=== PATIENT | male | born 1940 | race Caucasian/White ===

== ENCOUNTER 2017-10-27 17:44 | Inpatient (IN) | payer BC ==
[~2017-10-27] VITALS: Ht 175.3 cm; Wt 83.9 kg
[2017-10-27] MEDS ORDERED: PLAVIX 75 MG TA75 M1 PO (18:09)
[2017-10-27] MEDS ORDERED: GLYBURIDE 2.52.5 MG PO (18:11)
[2017-10-27] MEDS ORDERED: PRAVACHOL40 MG PO (18:13)
[2017-10-27] MEDS ORDERED: VITAMINC500 PO (18:14)
[2017-10-27] MEDS ORDERED: VITAMIN D2000 UNIT PO (18:18)
[2017-10-27] MEDS ORDERED: PROSCAR 5MG TABL5 MG PO (18:21)
[2017-10-27] MEDS ORDERED: COZAAR 50 MG TA50 M1 PO (18:23)
[2017-10-27] MEDS ORDERED: METFORMIN HCL500 MG PO (18:24)
[2017-10-27 20:26] VITALS: BP 135/77
--- NOTE | 2017-10-28 01:52 | NUR ---
ADMITTED @ 1916-10/27-WED-A 77 YEAR OLD [place] PER W/C FROM [facility].FAMILY BROUGHT PATIENT TO REHAB. STAYED UNTIL 2029.ASSISTED W/ 2 PERSONS FROM W/C TO RECLINER @ 1929.RIGHT HAND DOMINANT.CVA W/ FLACCID RUE. WEAK RIGHT LE.RIGHT UE ELEVATED ON A PILLOW WHILE IN RECLINER & WHILE IN BED. ASSIST OF 2 PERSONS TO BED @ 2209.URINAL W/IN REACH.HOB UP.BED ALARM PUT ON @ 2214.CALLS TO USE URINAL STANDING.NURSE PUTS,HOLDS,REMOVES & EMPTIES URINAL @ NIGHT.TURNS SELF @ NIGHT.
[2017-10-28 05:06] LABS: HEMATOCRIT 40.3 % (42.0-52.0); HEMOGLOBIN 13.9 gm/dL (14.0-18.0); MCH 32.1 pg (26.0-34.0); MCHC 34.6 g/dL (28.0-37.0); MCV 92.7 fL (80.0-100.0); MPV 8.9 fl. (7.2-11.1); RBC 4.34 mil/uL (4.50-6.00); RDW-CV 13.2 % (10.5-14.5)
[2017-10-28 05:08] LABS: CALCIUM 9.1 mg/dL (8.5-10.1); CREATININE 1.2 mg/dL (0.6-1.3); POTASSIUM 4.2 mmol/L (3.5-5.1)
--- NOTE | 2017-10-28 05:40 | NUR ---
SLEEPING SINCE -10/28-.USED URINAL W/ ASSIST X3-STANDING.STANDING BALANCE STILL UNSTEADY.TOOK ALL POTATO CHIPS,JELLO,TURKEY SANDWICH & NAOMI CRACKERS SNACKS.PENELOPE @ [facility].
[2017-10-28 07:39] VITALS: BP 123/69
[2017-10-28 08:04] VITALS: BP 123/69
--- NOTE | 2017-10-28 11:38 | NUR ---
AM ASSESSMENT AND VITAL SIGNS COMPLETED DOCUMENTED. PT HAS BEEN PLEASANT AND COOPERATIVE, STATES HE IS VERY EXCITED TO BE HERE AND IS ANXIOUS TO DO MUCH THERAPY POSSIBLE. PT, ST AND OT EVALS WILL BE COMPLETED TODAY, PLAN OF CARE TO BE DETERMINED. PT'S WAS HERE THIS AM AND HAS BEEN ORIENTED TO UNIT AND REHAB SCHEDULE. FALL PRECAUTIONS AND HOURLY ROUNDING OBSERVED.
--- NOTE | 2017-10-28 12:48 | NUR ---
Nutrition: Pt admit s/p lt CVA, no current H&P. BUN 26, fasting BG WNL. Accuchecks 72-127. Statin, metformin and other meds reviewed. Intake 100%. Appears at low nutrition risk. Rec add CHO controlled diet if BG elevated.
--- NOTE | 2017-10-28 16:04 | NUR ---
SW met with pt and pt Lissette to complete initial assessment, introduce self, and SW role. Pt alert and oriented. Pt anticipates to be able to dc home with his . Currently, their dtr and son in law and family are living with them until the dtr and son in law's home is built. Pt and pt are grateful for this as they do not worry about their home while they are in the hospital. Pt previously independent with ADLs and mobility. Pt has no history of HH or SNF and has no DME. Pt was discouraged and expressed being upset about not agreeing to go to the hospital earlier as his had suggested. SW provided emotional support. SW to continue to follow to assist with safe dc planning.
--- NOTE | 2017-10-28 18:36 | NUR ---
PT HAS PARTICIPATED WITH ALL THERAPIES TODAY AND IS VERY MOTIVATED. PT's FAMILY CAME TO VISIT THIS EVENING AND THEY ARE VERY ENCOURAGING AND SUPPORTIVE TO HIM. NO ACUTE DISTRESS, WILL CONTINUE WITH PLAN OF CARE.
[2017-10-28 21:11] VITALS: BP 119/70
--- NOTE | 2017-10-29 05:04 | NUR ---
ASSUMED CARE AT 1920. PT ALERT AND ORIENTED. UP IN RECLINER. CVA WITH RIGHT HEMIPARESIS. RIGHT ARM FLACCID AND RIGHT LEG WEAK. SLIGHT SLURRING OF SPEECH. TAKES PILLS WHOLE WITHOUT ISSUES. DID REFUSED S/S INSULING AT BEDTIME. SAYS THAT HE HAD JUST EATEN SOME CANDY RIGH BEFORE BEING CHECKED. HE IS A MOD ASSIST WITH GAIT BELT AND WALKER. PT NEEDED ASSIST WITH USING URINAL. DENIED ANY PAIN. USED CALL LIGHT APPROPRIATELY. SLEPT WELL OTHERWISE. BED ALARM ON.
[2017-10-29 07:48] VITALS: BP 116/67; BP 128/41
--- NOTE | 2017-10-29 16:15 | NUR ---
ASSUMED CARE AT 0730. ALERT ORIENTED PLEASANT COOPERATIVE. HX OF CVA RT. UE FLACCID AND RLE WEAKNESS. TRANSFERS WITH 1 ASSIST G BELT WALKER STANDS TO USE URINAL WITH STAFF ASSIST. DENIES PAIN OR REQUESTS. TAKES MEDS WHOLE WITH WATER WITHOUT DIFFICULTY. FEEDS SELF WITH SET UP. PARTICIPATING IN THERAPIES THROUGHOUT THE DAY. UP IN W/C WITH RT. ARM IN ARM TROUGH. HERE OFF AND ON THROUGH THE DAY. USES CALL LIGHT APPROPRIATELY FOR ASSISTANCE.
[2017-10-29 19:02] VITALS: BP 108/70
[2017-10-29 19:57] VITALS: BP 108/70
--- NOTE | 2017-10-30 05:03 | NUR ---
ASSUMED CARES AT 1930. PT ALERT AND ORIENTED X 4. PLEASANT. CVA WTIH RIGHT HEMIPARESIS. DENIES ANY PAIN. HE IS A MOD ASSIST WITH GAIT BELT AND WALKER. MAY LEAN TOWARDS RIGHT SIED WHEN STANDING. DOES NEED ASSIST WITH LEGS INTO BED. STAFF ASSISTED WITH USING URINAL FEW TIMES DURING THE NIGHT. SLEPT OFF AND ON. CALL LIGHT IN REACH. BED ALARM ON.
[2017-10-30 07:30] VITALS: BP 96/63
--- NOTE | 2017-10-30 16:02 | NUR ---
ASSUMED CARE AT 0730, PATIENT ALERT/ORIENTED, UP WITH ASSIST OF ONE AND WALKER/GAIT BELT. NO COMPLAINTS OF PAIN/DISCOMFORT. PARTICIPATED IN ALL THERAPIES TODAY, TO DINING ROOM FOR MEALS, BED/CHAIR ALARMS IN PLACE, CALL LIGHT IN REACH, HOURLY ROUNDING COMPLETED.
--- NOTE | 2017-10-30 19:45 | NUR ---
SITTING UP IN RECLINER VISITING WITH . DENIES PAIN. WANTS TO TAKE MELATONIN LATER. DECLINED OFFER OF A SNACK.
[2017-10-30 20:07] VITALS: BP 120/67
--- NOTE | 2017-10-31 05:23 | NUR ---
TAKES MEDS WHOLE WITH WATER. REFUSED HS SS INSULIN. AMARI HELD LAST NOC DUE TO PT HAVING HAD LOOSE BM YESTERDAY. PT STATES RESTED WELL. UP X ONE EARLY AM TO THE BATHROOM TO VOID. PT THOUGHT HE WAS GOING TO HAVE A BM BUT DIDN'T. GAIT WAS MORE UNSTEADY. PT TOOK MELATONIN LAST NOC. HOURLY ROUNDING IN PROGRESS.
[2017-10-31 07:45] VITALS: BP 105/68
--- NOTE | 2017-10-31 09:34 | NUR ---
AM ASSESSMENT AND VITAL SIGNS COMPLETED DOCUMENTED. PT WAS DRESSED AND SITTING IN THE RECLINER, AMBULATED TO THE DINING ROOM WITH A WALKER AND STAND BY ASSIST FOR BREAKFAST. PT IS INDEPENDENT WITH MEALS OTHER THAN OPENING THE MILK CARTON, GOOD APPETITE. PT IS NOW BACK IN HIS ROOM, FALL PRECAUTIONS AND HOURLY ROUNDING CONTINUE.
--- NOTE | 2017-10-31 12:26 | NUR ---
AM ASSESSMENT AND VITAL SIGNS COMPLETED DOCUMENTED. PT HAS WORKED WITH OT, PT AND ST THIS AM, COOPERATIVE AND PLEASANT. COLACE HELD PER PT REQUEST, STATES HE DOESN'T WANT TO HAVE ANY MORE LOOSE STOOLS. PT HAS BEEN AMBULATING TO THE BATHROOM USING A WALKER AND MIN ASSIST FOR BALANCE. PLAN OF CARE CONTINUES, HOURLY ROUNDING AND FALL PRECAUTIONS IN PLACE.
--- NOTE | 2017-10-31 20:00 | NUR ---
SITTING UP IN RECLINER WATCHING TV. IN GOOD SPIRITS. SMILING. DENIES DISCOMFORT. DOESN'T WANT HS SS INSULIN. DECLINED OFFER A SNACK.
[2017-10-31 20:06] VITALS: BP 115/70
--- NOTE | 2017-11-01 05:04 | NUR ---
RESTED QUIETLY. VOIDED X 2 DURING THE NIGHT. STANDS TO VOID. STAFF POSITIONS HOLD AND EMPTIES URINAL. NO COMPLAINTS VOICED. HOURLY ROUNDING IN PROGRESS.
[2017-11-01 07:46] VITALS: BP 116/71
--- NOTE | 2017-11-01 17:46 | NUR ---
ASSUMED CARE AT 0730 PATIENT ALERT/ORIENTED, NO COMPLAINTS OF PAIN THIS SHIFT, UP WITH ONE AND GAIT BELT/WALKER. NO THERAPIES TODAY BUT DID WALK WITH STAFF, TO DINING ROOM FOR MEALS, HOURLY ROUNDING COMPLETED, BED/CHAIR ALARMS IN PLACE, CALL LIGHT IN REACH. DR LY ORDERED ESTIMULATION TO RIGHT ARM, ORDER PLACED. CONTINUE WITH CURRENT PLAN OF CARE
--- NOTE | 2017-11-01 20:00 | NUR ---
JUST LEFT. SITTING UP IN W/C WATCHING FOOTBALL ON TV. STATES READY FOR BED. TOOK 3 ATTEMPTS FOR PT TO GET FROM SITTING TO STANDING. NO LIFTING WAS INVOLVED. USES WALKER WITH ADAPTIVE DEVICE FOR RIGHT HAND. STOOD TO VOID. STAFF POSITIONS HOLD AND EMPTIES URINAL. WANTS MELATONIN LATER. REFUSED HS INSULIN. RIGHT ARM ELEVATED ON A PILLOW.
[2017-11-01 20:16] VITALS: BP 117/72
--- NOTE | 2017-11-02 05:18 | NUR ---
UP X ONE DURING THE NIGHT TO THE TOILET. NO COMPLAINTS VOICED. HOURLY ROUNDING IN PROGRESS.
[2017-11-02 07:00] VITALS: BP 122/70
--- NOTE | 2017-11-02 14:45 | NUR ---
ASSUMED CARE AT 0730. ALERT ORIENTED PLEASANT COOPERATIVE. HX OF CVA RT. SIDE WEAKNESS RT. ARM FLACCID RLE WEAKNESS. TRANSFERS WITH MIN ASSIST G BELT WALKER. LIKES TO STAND TO VOID IN URINAL NURSE HOLDS AND EMPTIES. DENIES PAIN OR REQUESTS. FEEDS SELF WITH SET UP AND TAKES MEDS WITHOUT DIFFICULTY. USES CALL LIGHT APPROPRIATELY FOR ASSISTANCE. BED CHAIR ALARM FOR PT. SAFETY. PARTICIPATING IN THERAPIES THROUGHOUT THE DAY. HERE VISITING.
[2017-11-02 20:55] VITALS: BP 119/52; BP 119/70
--- NOTE | 2017-11-03 01:29 | NUR ---
ASSUMED CARE @ 1939-11/02-.SITS IN RECLINER W/ VISITING @ THIS TIME.RUE ELEVATED ON A PILLOW WHILE IN RECLINER.RUE-FLACCID.RIGHT LE-WEAK.CHAIR ALARM ALREADY ON WHILE IN RECLINER.ASSISTED TO BED BY LEAF BINNER W/ HOB & RUE-BOTH UP.BED ALARM PUT ON @ 2014.PRN MELATONIN 10 MG ORAL GIVEN @ 2047-PER PT'S REQUEST. TURNS SELF @ NIGHT.CALLS FOR ASSIST TO USE URINAL STANDING.ON HOURLY ROUNDS.LEAF BINNER DOING ODD HOUR ROUNDS.
--- NOTE | 2017-11-03 05:49 | NUR ---
SLEEPING SINCE 2199.REFUSED HS SNACK.USES URINAL STANDING.NURSE PUTS,HOLDS, REMOVES & EMPTIES URINAL @ NIGHT.USED URINAL X3.BRP W/ ASSIST X1.
[2017-11-03 08:12] VITALS: BP 118/70
[2017-11-03 14:00] VITALS: BP 129/68
--- NOTE | 2017-11-03 14:30 | NUR ---
SW met with pt and pt to review team conference summary. Plan for pt to remain on rehab unit and continue therapies and for team to reassess pt length of stay during team conference on Friday 11/10. SW and pt/family acknowledged pt would need RW and AFO; AFO to be assessed and ordered during hospital stay and SW to order RW near pt dc for pt to take home with him. SW relayed team discussed pt progress and pt min assist with transfers and walking 150 ft with FWW, supervision with wc 150 ft, min assist with toileting, bathing, and min to mod asssit with LB dressing, supervision/SBA with grooming and UB dressing, mod I with cognition. SW mentioned team expressed barriers to be pt impulsivity, decreased balance, right foot drop, weakness and needing extra time to process. Team to encourage pt not to schneider in his tasks. Pt and pt family in agreement with plan. SW to continue to follow to assist with safe dc planning.
--- NOTE | 2017-11-03 15:56 | NUR ---
ORDERS FOR ESTIM TO RIGHT ARM HAVE BEEN DEFERRED TO O.T. ORDERS WRITTEN IN CHART. MIRACLE VENTURA, MPT
--- NOTE | 2017-11-03 16:04 | NUR ---
ORDERS RECEIEVED REGARDING E-STIM FOR R ARM. ORDERS DEFERRED TO OYayoT. RN SUBMITTED ORDERS FOR O.T. MIRACLE VENTURA,MPT
--- NOTE | 2017-11-03 17:24 | NUR ---
ASSUMED CARE AT 0730. ALERT ORIENTED PLEASANT COOPERATIVE. HX OF CVA RT. SIDE WEAKNESS. TRANSFERS WITH 1 ASSIST G BELT WALKER RT. UE FLACCID RT. LOWER EXTREMITY WEAK. DENIES PAIN OR REQUESTS. PT. TAKES MEDS WITH WATER HAD A COUGHING SPELL WITH MEDS HE TOOK SEVERAL AT ONCE. RESOLVED ISSUE QUICKLY INSTRUCTED TO SLOW DOWN WITH EATING AND MEDS TAKE TIME. PARTICIPATING IN THERAPIES THROUGHOUT THE DAY. PT. WAS BEING AMBULATED FROM W/C TO DOORWAY OF ROOM USING WALKER G BELT WITH WEAKNESS RT. SIDE LOST BALANCE AND WAS LOWERED TO FLOOR BY STUD DRIVER. VSWNL. DENIES PAIN CONTINUED TO PARTICIPE IN THERAPIES THROUGHOUT THE DAY. HERE ON AND OFF TODAY. USES CALL LIGHT APPROPRIATELY FOR ASSISTANCE. BED CHAIR ALARM FOR PT. SAFETY.
[2017-11-03 19:30] VITALS: BP 122/74
--- NOTE | 2017-11-03 19:50 | NUR ---
JUST LEFT. PT WAS UNABLE TO RISE FROM RECLINER AND STAND WITH ASSIST OF ONE. AFTER 3 ATTEMPTS ASSISTED PT WITH ASSIST OF 2, GAITBELT, WALKER. PT MORE WEAK AND UNSTEADY THAN WHEN CARED FOR PT TWO NIGHTS AGO. ONE HELPER PLACED AND HELD THE URINAL WHILE OTHER HELPER KEPT PT STEADY. PT WAS ABLE TO LIFT HIS LEGS INTO THE BED. CALL LIGHT WITHIN REACH. RIGHT ARM ELEVATED ON A PILLOW.
--- NOTE | 2017-11-04 05:16 | NUR ---
UP X TWO DURING THE NIGHT TO VOID. NO COMPLAINTS VOICED. HOURLY ROUNDING IN PROGRESS.
[2017-11-04 07:45] VITALS: BP 127/65
--- NOTE | 2017-11-04 09:30 | NUR ---
FAX SENT TO [facility] FOR RIGHT AFO
[2017-11-04 10:50] LABS: HEMATOCRIT 41.5 % (42.0-52.0); HEMOGLOBIN 14.3 gm/dL (14.0-18.0); MCHC 34.6 g/dL (28.0-37.0); MCV 92.4 fL (80.0-100.0); MPV 8.7 fl. (7.2-11.1); RBC 4.49 mil/uL (4.50-6.00); RDW-CV 13.4 % (10.5-14.5); WBC 6.7 thou/uL (4.0-11.0)
[2017-11-04 10:59] LABS: ALBUMIN 3.8 g/dL (3.4-5.0); CALCIUM 8.9 mg/dL (8.5-10.1); CREATININE 1.2 mg/dL (0.6-1.3); POTASSIUM 3.9 mmol/L (3.5-5.1); TOTAL BILIRUBIN 0.7 mg/dL (<0.1-1.0); TOTAL PROTEIN 7.4 g/dL (6.4-8.2)
--- NOTE | 2017-11-04 18:14 | NUR ---
ASSUMED CARE AT 0730 PATIENT ALERT/ORIENTED, UP WITH MOD ASSIST OF ONE WALKER AND GAIT BELT, NO COMPLAINTS OF PAIN, TO DINING ROOM FOR MEALS, PARTICIPATED IN ALL THERAPIES TODAY, BED/CHAIR ALARMS IN PLACE, CALL LIGHT IN REACH, HOURLY ROUNDING COMPLETED. AFO ORDERD WILL BE HERE WEDNESDAY OR WED. CONTINUE WITH CURRENT PLAN OF CARE
[2017-11-04 20:04] VITALS: BP 124/77
--- NOTE | 2017-11-04 22:10 | NUR ---
ASSUMED CARE AT 1929. PATIENT S/P CVA. RT HAND MOVES BUT PLASTIC PRESS MOLDER IS WEAK. RLE WEAK. IN RECLINER UNTIL ASSISTED TO BED AROUND 2129. UP WITH ONE, GAIT BELT, WALKER. MOD LIFTING ASSIST WITH RISING, NEEDED CUEING FOR HAND PLACEMENT. VOIDS PER URINAL AT [facility], NURSE HOLDS IT AND EMPTIES. RT ARM SUPPORTED ON PILLOW. TAKES PILLS WITH WATER. STRONGLY REFUSED HS SNACK. GIVEN MELATONIN PER REQUEST AT HS. DENIES PAIN. HOURLY ROUNDS CONTINUE, CALL LITE IN REACH. BED ALARM ON.
--- NOTE | 2017-11-05 06:09 | NUR ---
SLEPT MOST OF THE NIGHT EXCEPT TO VOID. STANDS AT SIDE OF BED TO VOID WITH NURSE HOLDING URINAL. NO C/O PAIN. TURNS SELF. BED ALARM ON. CALL LITE IN REACH. HOURLY ROUNDING CONTINUES.
[2017-11-05 07:30] VITALS: BP 105/68
--- NOTE | 2017-11-05 15:44 | NUR ---
ASSUMED CARE AT 0730. ALERT ORIENTED, PLEASANT COOPERATIVE. HX OF CVA RT. SIDE WEAKNESS. TRANSFERS WITH MIN ASSIST G BELT WALKER FROM SIT TO STAND DUE TO LOWER EXTREMITY WEAKNESS. VOIDS PER URINAL WITH NURSE PLACING IT HE LIKES TO STAND TO VOID. FEEDS SELF AND TAKES MEDS WITHOUT DIFFICULTY CRUSHED IN APPLESAUCE. THIN LIQUIDS.
--- NOTE | 2017-11-05 18:55 | NUR ---
AND PTS. FAMILY ATE SAMOAN IN DR FOR SUPPER PROPELLS SELF IN W/C TO DR. DENIES PAIN OR REQUESTS.
[2017-11-05 20:00] VITALS: BP 123/72
--- NOTE | 2017-11-06 02:11 | NUR ---
ASSUMED CARE @ 1916-11/05-WEDNESDAY.SITS IN RECLINER.RUE ELEVATED ON A PILLOW @ THIS TIME.ROLLS BALL W/ RIGHT HAND HAND & FINGER EXERCISES.CHAIR ALARM PUT ON @ 1916.CALLS FOR ASSIST TO STAND TO VOID USING URINAL.NURSE PUTS,HOLDS, REMOVES & EMPTIES URINAL @ NIGHT.HOB UP & RUE UP WHILE IN BED.BED ALARM PUT ON @ 2049.PRN MELATONIN 10 MG ORAL GIVEN @ 2115-PER PT'S REQUEST.WANTS DOOR CLOSED @ NIGHT.ON HOURLY ROUNDS.ARBORER DOING ODD HOUR ROUNDS.TURNS SELF @ NIGHT. THIGH HIGH TEDS OFF @ 2049.
--- NOTE | 2017-11-06 05:19 | NUR ---
SLEEPING SINCE 2200.AWAKE ONLY TO VOID.USED URINAL X3.URINE ACCIDENT X1.TOOK ALL CRANBERRY JUICE & ONE PACKAGE NAOMI CRACKERS HS SNACKS.
[2017-11-06 08:00] VITALS: BP 113/72
--- NOTE | 2017-11-06 16:10 | NUR ---
ASSUMMED CARE OF PT AT 0730, PT ALERT AND ORIENTED, FORGETFUL,PT UP WITH 1, GB WALKER, SLIGHT SWELLING IN RIGHT LE, RODRI HOSE TO RIGHT LEG, PT DENIES PAIN, TAKING FOOD AND FLUIDS WELL, PARTICIPATED IN ALL THERAPIES, HOURLY ROUNDING COMPLETED, ASSESSMENT COMPLETE, WILL COTNINUE TO MONITER.
[2017-11-06 20:29] VITALS: BP 117/79
--- NOTE | 2017-11-07 02:07 | NUR ---
ASSUMED CARE @ 1911-11/06-SAT.SITS IN RECLINER W/ CHAIR ALARM ALREADY ON @ THIS TIME.,DAUGHTER & HER OTHER SISTERS VISITING ALSO.RUE ELEVATED ON A PILLOW WHILE SITTING.HAS BALL RIGHT HAND FOR HAND/FINGER EXERCISES.EDEMA-+2 PITTING FEET.WEARS ONLY THIGH RODRI HOSE RIGHT LE & OFF @ 2114.ASSISTED TO BED BY [employer] MACHINE OPERATOR. PRN MELATONIN 10 MG ORAL GIVEN @ 2116-PER PT'S REQUEST.HOB & RUE UP WHILE IN BED.BED ALARM PUT ON @ 2124.WANTS DOOR CLOSED @ NIGHT.TURNS SELF @ NIGHT.USES URINAL @ NIGHT BUT STANDS TO USE URINAL W/ ASSIST.NURSE PUTS,HOLDS,REMOVES & EMPTIES URINAL @ NIGHT.ON HOURLY ROUNDS.CONCR[employer]ODUCTS MACHINE OPERATOR DOING ODD HOUR ROUNDS.
--- NOTE | 2017-11-07 05:06 | NUR ---
SLEEPING SINCE 2199.USED URINAL W/ASSIST X2.RUE-FLACCID.WEAK-RIGHT LE.TOOK ALL CRANBERRY JUICE & ONE PACKAGE NAOMI CRACKERS HS SNACKS.
[2017-11-07 08:22] VITALS: BP 95/67
--- NOTE | 2017-11-07 15:46 | NUR ---
ASSUMED CARE AT 0730. ALERT ORIENTED PLEASANT COOPERATIVE. HX OF CVA RT. SIDE WEAKNESS. TRANSFERS WITH 1 ASSIST AND STANDS TO VOID PER URINAL WITH NURSE PLACING AND HOLDING URINAL. USING WALKER TO AMBULATE X 1 IN [place] WITH TIRE ADJUSTER. PROPELLS SELF IN W/C TO DR FEEDS SELF AND TAKES MEDS WITH WATER WITHOUT DIFFICULTY. APPETITE GOOD HERE VISITING THIS AFTERNOON. USES CALL LIGHT APPROPRIATELY FOR ASSIST BED CHAIR ALARM FOR PT. SAFETY. RT. ARM FLACCID RLE WEAKNESS.
[2017-11-07 21:37] VITALS: BP 139/71
--- NOTE | 2017-11-08 01:07 | NUR ---
ASSUMED CARE @ 1919-11/07-WEDNESDAY.SITS IN RECLINER WATCHING TV.CHAIR ALARM ALREADY ON @ THIS TIME.AT 1934-AMBULATING IN HALLWAY W/MAINTENANCE DATA ANALYST W/ GB & WALKER. HOB UP & RUE ELEVATED W/ A PILLOW @ 1949.RIGHT THIGH HIGH RODRI HOSE OFF @ 1949.BED ALARM PUT ON @ 1949.WANTS DOOR CLOSED & ALL LIGHTS OFF @ NIGHT. PATIENT PREFERS NEW ORDER FOR SLEEPING MED THAN PRN MELATONIN.PRN RESTORIL 7.5 MG ORAL GIVEN @ 2001-PER PT'S REQUEST.EDEMA-+2 PITTING RIGHT ANKLE & RIGHT FOOT.BP @ 0822-95/67.BP @ 2037-139/71.BUT BRADYCARDIC W/ RI-50 @ 2036. RI-76/MIN-REGULAR WHEN CHECKED @ 9-11/08-WEDNESDAY.TURNS SELF @ NIGHT.ON HOURLY ROUNDS.MAINTENANCE DATA ANALYST DOING ODD HOUR ROUNDS.
--- NOTE | 2017-11-08 05:28 | NUR ---
SLEEPING SINCE 2200.AWAKE @ INTERVALS TO VOID.ASSIST TO STAND TO USE URINAL X 4.NURSE PUTS,HOLDS,REMOVES & EMPTIES URINAL @ NIGHT.FLACCID-RUE.WEAK-RIGHT LE.REFUSED HS SNACK.
[2017-11-08 07:30] VITALS: BP 117/70
--- NOTE | 2017-11-08 18:08 | NUR ---
ASSUMED CARE AT 0730. ALERT ORIENTED PLEASANT COOPERATIVE. HX OF CVA RT. SIDE WEAKNESS. TRANSFERS WITH SBA G BELT WALKER AND STANDS WITH WALKER TO VOID. PARTICIPATING IN THERAPIES TODAY. USING CALL LIGHT APPROPRIATELY FOR ASSIST BED CHAIR ALARM FOR PT. SAFETY. TAKES MEDS WITHOUT DIFFICULTY. FEEDS SELF APPETTITE GOOD. PROPELLS W/C IN [place] WITH THERAPIES AND TO DR FOR MEALS. DENIES PAIN OR REQUESTS.
[2017-11-08 19:47] VITALS: BP 121/70
--- NOTE | 2017-11-08 21:57 | NUR ---
ASSUMED CARE AT 1930. S/P CVA WITH RT SIDED WEAKNESS. PATIENT RESTING IN RECLINER AT BEGINNING OF SHIFT, WENT TO BED AROUND 2029. UP WITH ONE, GAIT BELT, WALKER. ABLE TO DO CLOTHING ADJUSTMENTS TO CHANGE INTO PAJAMAS. TAKES PILLS WITH WATER. TEDS REMOVED. TOOK TEMAZAPAM AT HS. SEE DEC. VOIDS STANDING AT SIDE OF BED. HOURLY ROUNDS CONTINUE. BED ALARM ON. CALL LITE IN REACH.
--- NOTE | 2017-11-09 05:14 | NUR ---
SLEPT MOST OF THE NIGHT EXCEPT TO VOID. UP WITH ONE, GAIT BELT, WALKER, STANDS TO VOID. NURSE PLACES HOLDS AND EMPTIES URINAL. NO C/O PAIN. HOURLY ROUNDING CONTINUES. CALL LITE IN REACH. BED ALARM ON.
[2017-11-09 07:37] VITALS: BP 124/65
--- NOTE | 2017-11-09 18:22 | NUR ---
PT ALERT AND ORIENTATED AND ABLE TO VOICE NEEDS. PT CALLS FOR ASSIST TO AMBULATE TO BATHROOM AND VOIDS WELL AND REPORTS HAVING BM TODAY. MPT HAS NEW AFO TO RT.LOWER LEG AND REPORTS IT FEELS GOOD AND HE CAN WALKE BETTER. PT DENIES PAIN DURING DAY. PT HAS PARTICIPATED WITH THERAPIES AND CONTINUES TO PROGRESS TOWARDS GOALS. HOURLY ROUNDING CONTINUES.
[2017-11-09 19:49] VITALS: BP 97/65
--- NOTE | 2017-11-09 20:40 | NUR ---
AMBULATED TO THE BATHROOM WITH SBA, GAITBELT, WALKER. PT THOUGHT HE WAS GOING TO HAVE A BM BUT JUST PASSED FLATUS. DOES OWN RYAN CARE AND CLOTHING ADJUSTMENTS. DENIES DISCOMFORT. GAVE PRN RESTORIL PER PT'S REQUEST. PT TOOK MED WHOLE WITH WATER. RIGHT ARM ELEVATED ON A PILLOW. TURNS SELF IN BED. DECLINED OFFER OF A SNACK.
--- NOTE | 2017-11-10 04:58 | NUR ---
UP X TWO DURING THE NIGHT TO STAND AT BEDSIDE AND VOID. PT STATES RESTED GOOD IN BETWEEN VOIDS. NO COMPLAINTS VOICED. HOURLY ROUNDING IN PROGRESS.
[2017-11-10 07:37] VITALS: BP 113/65
--- NOTE | 2017-11-10 14:00 | NUR ---
SW met with pt and pt family to review team conference summary. Plan for team to reassess pt length of stay during team conference next Friday 11/17. Pt and pt family okay with plan and pt is hopeful to hear a dc date after next team conference so that he will have a day to reach for and look forward to being ready to return home at that time. SW to follow to arrange HH services and order any needed DME as pt did not have any DME prior to admission to the hospital. No other concerns or questions from pt or pt at this time.
--- NOTE | 2017-11-10 18:51 | NUR ---
ASSUMED CARE AT 0730 PATIENT ALERT/ORIENTED, NO COMPLAINTS OF PAIN/DISCOMFORT, UP WITH ASSIST OF ONE AND WALKER/GAIT BELT, USES AFO IN RIGHT FOOT. PARTICIPATED IN ALL THERAPIES TODAY, TO DINING ROOM FOR MEALS. BED/CHAIR ALARMS IN PLACE, CALL LIGHT IN REACH.
[2017-11-10 20:00] VITALS: BP 126/71
--- NOTE | 2017-11-11 00:21 | NUR ---
ASSUMED CARE AT 1930. PATIENT S/P CVA WITH RT SIDED WEAKNESS. UP WITH ONE, GAIT BELT, WALKER, STAND PIVOT. VOIDS PER URINAL STANDING, NURSE PLACES, HOLDS AND EMPTIES URINAL. TAKES PILLS ONE AT A TIME. NEW MED OF BACLOFEN, STARTED AT 5 MG, SEE MAR. DENIES PAIN. HOURLY ROUNDS CONTINUE. BED ALARM ON. CALL LITE IN REACH.
--- NOTE | 2017-11-11 06:13 | NUR ---
SLEPT MOST OF THE NIGHT EXCEPT TO VOID. NO C/O PAIN. HOURLY ROUNDS CONTINUE, BED ALARM ON. CALL LITE IN REACH.
[2017-11-11 09:19] VITALS: BP 121/69
--- NOTE | 2017-11-11 15:42 | NUR ---
ASSUMED CARE AT 0730. PATIENT ALERT/ORIENTED, UP WITH ASSIST OF ONE WALKER/GAIT BELT, NO COMPLAINTS OF PAIN THIS SHIFT, PARTICIPATED IN ALL THERAPIES, TO DINING ROOM FOR MEALS, HOURLY ROUNDING COMPLETED, BED/CHAIR ALARMS IN PLACE, CALL LIGHT IN REACH. CONTINUE WITH CURRENT PLAN OF CARE
[2017-11-11 20:03] VITALS: BP 119/71
--- NOTE | 2017-11-12 05:12 | NUR ---
ASSUMED CARES AT 1915. PT ALERT AND ORIENTED. VISITED FOR SHORT TIME. CVA WITH RIGHT HEMIPARESIS. RIGHT ARM FLACCID. RIGHT LEG WEAK. HE IS A MIN ASSIST WITH GAIT BELT AND WALKER. STAFF ASSISTS WITH URINAL PLACEMENT AND EMPTYING. RIGHT LEG AFO WHEN UP. DENIES ANY PAIN. RESTORIL GIVEN PER PT REQUEST. UP FEW TIMES DURING THE NIGHT. SLEPT WELL OTHERWISE. CALL LIGHT IN REACH AND BED ALARM ON.
[2017-11-12 07:30] VITALS: BP 113/63
--- NOTE | 2017-11-12 18:29 | NUR ---
ASSUMED CARE AT 0730. ALERT ORIENTED PLEASANT COOPERATIVE. HX OF CVA WITH RT. SIDE WEAKNESS. WEARING RAFO FOR WEAKNESS RT. LOWER EXTREMITY. TRANSFERS AND WALKS WITH G BELT WALKER TO BR AND WITH THERAPIES. DENIES PAIN OR CONCERNS. TAKES MEDS WITHOUT DIFFICULTY. USES CALL LIGHT APPROPRIATELY. FOR ASSIST. BED CHAIR ALARM FOR PT. SAFETY. HERE VISITING THROUGHOUT THE DAY, HAD WINSTEADS FOR SUPPER MEAL.
[2017-11-12 20:10] VITALS: BP 119/65
--- NOTE | 2017-11-13 05:49 | NUR ---
ASSUMED CARES AT 1920. PT ALERT AND ORIENTED. PLEASANT. SLIGHT SLURRING OF SPEECH. CVA WITH RIGHT HEMIPARESIS. TAKES PILLS WHOLE WITHOUT ISSUES. TEMAZEPAM GIVEN FOR SLEEP. UP WITH GAIT BELT AND WALKER. NEEDS ASSIST WITH URINAL PLACEMENT AND EMPTYING. SLEPT WELL MOST OF THE NIGHT. USED CALL LIGHT APPROPRIATELY.
[2017-11-13 08:03] VITALS: BP 116/64
--- NOTE | 2017-11-13 15:34 | NUR ---
ASSUMED CARE AT 0730 PATIENT ALERT/ORIENTED, NO COMPLAINTS OF PAIN THIS SHIFT, UP WITH ASSIST OF ONE WITH WALKER AND GAIT BELT, PARTICIPATED IN ALL THERAPIES TODAY, TO DINING ROOM FOR MEALS, HOURLY ROUNDING COMPLETED, CALL LIGHT IN REACH, BED/CHAIR ALARMS IN PLACE. CONTINUE WITH CURRENT PLAN OF CARE
[2017-11-13 20:04] VITALS: BP 109/65
--- NOTE | 2017-11-14 05:12 | NUR ---
ASSUMED PT CARE AT 1920. PT ALERT AND ORIENTED X4, POLITE AND COOPERATIVE WITH CARES. CVA WITH RIGHT HEMIPARESIS. TAKES PILLS WHOLE WITHOUT DIFFICULTY. TEMAZEPAM GIVEN FOR SLEEP. UP WITH GAIT BELT AND WALKER. STAFF ASSISTS WITH URINAL PLACEMENT AND EMPTYING. PT SLEPT WELL OVERNIGHT. PT USES CALL LIGHT APPROPRIATELY. CALL LIGHT AND FREQUENTLY USED ITEMS WITHIN REACH. HOURLY ROUNDING IN PROGRESS, WILL CONTINUE TO MONITOR.
[2017-11-14 08:02] VITALS: BP 108/67
--- NOTE | 2017-11-14 15:40 | NUR ---
ASSUMED CARE AT 0730 PATIENT ALERT/ORIENTED, UP WITH ASSIST OF ONE AND WALKER/GAIT BELT, NO COMPLAINTS OF PAIN THIS SHIFT, TO DINING ROOM FOR MEALS, HOURLY ROUNDING COMPLETED, CALL LIGHT IN REACH, BED/CHAIR ALARMS IN PLACE. CONTINUE WITH CURRENT PLAN OF CARE
[2017-11-14 20:06] VITALS: BP 145/80
--- NOTE | 2017-11-15 04:57 | NUR ---
ASSUMED PT CARE AT 1920. PT ALERT AND ORIENTED X4, POLITE AND COOPERATIVE WITH CARES. CVA WITH RIGHT HEMIPARESIS. DENIES PAIN. TAKES PILLS WHOLE WITH WAER WITHOUT DIFFICULTY. TEMAZEPAM GIVEN FOR SLEEP. UP WITH ASSIST OF ONE, GAIT BELT AND WALKER. STAFF ASSISTS WITH URINAL PLACEMENT AND EMPTYING. PT SLEPT WELL OVERNIGHT, USES CALL LIGHT APPROPRIATELY. CALL LIGHT AND FREQUENTLY USED ITEMS WITHIN REACH. BED ALARM ON FOR SAFETY. HOURLY ROUNDING IN PROGRESS, WILL CONTINUE TO MONITOR.
--- NOTE | 2017-11-15 18:55 | NUR ---
ASSUMED CARE AT 0730. ALERT ORIENTED PLEASANT COOPERATIVE. HX OF CVA RT. SIDE WEAKNESS. WEARS R AFO FOR RLE WEAKNESS. RODRI HOSE ON RT. LEG PER DR. HEAD. BP WAS LOW THIS A.M. RECHECKED AND WAS WNL. PARTICIPATED IN THERAPIES THROUGHOUT THE DAY. DENIES PAIN OR REQUESTS. TRANSFERS WITH SBA G BELT WALKER AND AMBULATES TO BR HAD BM AND VOIDED. USES CALL LIGHT APPROPRIATELY FOR ASSIST BED CHAIR ALARM FOR PT. SAFETY.
[2017-11-15 20:00] VITALS: BP 110/72
--- NOTE | 2017-11-16 05:08 | NUR ---
ASSUMED CARES AT 1920. PT ALERT AND ORIENTED. PLEASANT. UP IN RECLINER. DENIES ANY PAIN. HE IS A MIN ASSIST WITH GAIT BELT AND WALKER. RIGHT LEG AFO. RIGHT LEG TEDS REMOVED. SLEEPING PILL GIVEN PER REQUEST. TAKES PILLS WHOLE WITHOUT ISSUES. STANDS TO USE URINAL WITH RN ASSISTING WITH URINAL PLACEMENT AND EMPTYING. SLEPT MOST OF THE NIGHT. USED CALL LIGHT APPROPRIATELY. BED ALARM ON.
[2017-11-16 07:30] VITALS: BP 118/68
--- NOTE | 2017-11-16 14:43 | NUR ---
ASSUMED CARE AT 0730. ALERT ORIENTED PLEASANT COOPERATIVE. HX OF CVA RT. SIDE WEAKNESS. WEARS R AFO RLE. AMBULATES WITH CGA - SBA G BELT WALKER TO BR AND TO DR FOR MEALS. DENIES PAIN OR REQUESTS. USES CALL LIGHT APPROPRIATELY FOR ASSIST. BED CHAIR ALARM FOR PT. SAFETY. PARTICIPATING WITH THERAPIES THROUGHOUT THE DAY. DOES HYGEINE AND CLOTHING ADJUSTMENTS AFTER BM IN TOILET. VISITORS TODAY AND HERE THIS AFTERNOON. RODRI FRITZ RT. LEG AFTER SHOWER O.T.
[2017-11-16 20:00] VITALS: BP 102/65
--- NOTE | 2017-11-17 05:07 | NUR ---
ASSUMED CARES AT 1920. PT ALERT AND ORIENTED. PLEASANT. DENIES ANY PAIN. RESTORIL GIVEN FOR SLEEP. TAKES PILLS WHOLE WITHOUT ISSUES. HE IS A MIN ASSIST WITH GAIT BELT AND WALKER. RN ASSISTED WITH URINAL PLACEMENT AND EMPTYING. REMOVED RIGHT LEG TEDS. HAS RIGHT LEF AFO. SLEPT WELL. CALL LIGHT IN REACH AND BED ALARM ON.
[2017-11-17 08:05] VITALS: BP 119/74
--- NOTE | 2017-11-17 17:29 | NUR ---
SW met with pt and pt to review team conference summary. Plan for pt to dc home with and family on Wednesday with back up plan of dc Wednesday if needed. Pt and pt are in agreement and hopeful for Wednesday dc. SW explained team's recommendation for family training and pt will be available for family training at 9 am. Pt agreeable to spending the night with pt and aware of assisting with pt as needed to trial how pt will be at home. Pt to have HH services and a rolling walker arranged prior to pt dc. SW to continue to follow to assist with finalizing safe dc plan.
--- NOTE | 2017-11-17 17:43 | NUR ---
ASSUMED CARE AT 0730 PATIENT ALERT/ORIENTED NO COMPLAINTS OF PAIN, UP WITH ASSIST OF ONE AND WALKER AND GAIT BELT. PARTICIPATED IN ALL THERAPIES TODAY, CALL LIGHT IN REACH, BED/CHAIR ALARMS IN PLACE. HOURLY ROUNDING COMPLETED. TO BE DISCHARGED TO HOME FRI/SAT, TO SPEND OVERNIGHT FOR TRAINING. CONTINUE WITH CURRENT PLAN OF CARE
[2017-11-17 20:30] VITALS: BP 115/67
--- NOTE | 2017-11-18 01:51 | NUR ---
ASSUMED CARE @ 1926-11/17-WED.SITS IN RECLINER WATCHING TV.BRACE IN PLACE RIGHT LE.RIGHT THIGH HIGH RODRI HOSE OFF @ 2119 WHEN PATIENT PUT TO BED.CALLS FOR ASSIST TO STAND TO USE URINAL @ NIGHT.NURSE PUTS,HOLDS,REMOVES & EMPTIES URINAL @ NIGHT.PRN RESTORIL GIVEN @ 2135-PER PT'S REQUEST.RUE ELEVATED ON A PILLOW WHEN IN BED.TURNS SELF @ NIGHT.CVA W/ FLACCID-RUE.WEAK-RIGHT LE. ON HOURLY ROUNDS.LOGISTICS SUPPLY OFFICER DOING ODD HOUR ROUNDS.
--- NOTE | 2017-11-18 05:24 | NUR ---
SLEEPING SINCE 2200.REFUSED HS SNACK.USED URINAL W/ ASSIST X2.WARM BLANKET PLACED ON PATIENT 2X.ROOM -COLD.PLAN-TO DC WEDNESDAY-11/19.
[2017-11-18 07:24] VITALS: BP 114/69
--- NOTE | 2017-11-18 16:28 | NUR ---
ASSUMED CARE AT 0730 PATIENT ALERT/ORIENTED, NO COMPLAINTS OF PAIN THIS SHIFT UP WITH ASSIST OF ONE AND WALKER/GAIT BELT, TO DINING ROOM FOR MEALS, PARTICIPATED IN ALL THERAPIES TODAY, HOURLY ROUNDING COMPLETED, BED/CHAIR ALARMS IN PLACE. FAMILY TRAINING WITH TO STAY OVERNIGHT WITH PATIENT, TO BE D/C HOME TOMORROW.
--- NOTE | 2017-11-18 17:02 | NUR ---
NINO provided referral by fax and also called [facility] who accepted referral and orders for pt to receive HH services at [place] on Sunday 11/19. NINO faxed order for RW and discussed with Eileen Donovan who will provide RW to pt room prior to pt dc. Pt to dc home with and family at all times to assist and supervise and for [facility] HH care services to follow.
[2017-11-18 19:35] VITALS: BP 105/75
--- NOTE | 2017-11-18 19:35 | NUR ---
PT SITTING UP IN RECLINER AND WATCHING TV. DENIES DISCOMFORT. IS STAYING THE NIGHT WITH PATIENT AND SLEEPING ON A COT. IS CARING FOR THE PATIENT WITH SUPERVISION FROM RN. PT IS TO SLEEP ON A REGULAR BED IN THE TRANSITIONAL LIVING APARTMENT. DECLINED OFFER OF A SNACK.
[2017-11-19 00:51] VITALS: BP 105/75
[2017-11-19] MEDS ORDERED: CHILDREN'S ASPI81 M1 PO (01:01)
[2017-11-19] MEDS ORDERED: LIORESAL 10 MG10 MG PO (01:04)
--- NOTE | 2017-11-19 06:33 | NUR ---
UP X 4 DURING THE NIGHT TO STAND TO VOID WITH ASSISTING AND RN SUPERVISING. DIDN'T HAVE DIFFICULTY ONCE SHE FIGURED OUT HOW TO PUT THE GAITBELT ON. IS LEFT HANDED. PT CURRENTLY SITTING UP IN RECLINER. HOURLY ROUNDING IN PROGRESS.
[2017-11-19 08:32] VITALS: BP 124/75
[2017-11-19 08:47] VITALS: BP 105/75
--- NOTE | 2017-11-19 13:26 | NUR ---
ASSUMMED CARE OF PT AT 0730, PT ALERT AND ORIENTED, PT UP IN ROOM WITH SUPERVSION OF , AND STAFF, PT TAKING FOOD AND FLUIDS WELL, DENIES PAIN, PARTICIPATED IN ALL THERAPIES, TRANSFERS WITH WALKER AND GB, ORDERS OBTAINED FOR DISCHARGE, PT AND INSTRUCTED IN DISCHARGE ORDERS, FOLLOW UP APPTS, WHEN TO CALL PHYSICIAN, MEDICATIONS, FALL PRECAUTIONS, HOME HEALTH, AND PT STATE UNDERSTANDING OF INSTRUCTIONS, SCRIPT GIVEN TO PT AND CALLED INTO PHARMACY, BELONGINGS SENT WITH PT, WALKER SENT WITH PT, HOURLY ROUNDING COMPLETED, ASSESSMENT COMPLETED, DISCHARGED TO MAIN ENTRANCE PER WHEELCHAIR.
--- NOTE | 2017-11-24 14:12 | H ---
[address] [address] HISTORY AND PHYSICAL Name: BRADENINDIGO J Room: [address]#: [id number] Admission: 10/27/17 Attend Phys: Kelly Fuentes, DO Discharge: 11/19/17 Date of : 44 Report #: [id number] THIS REPORT FOR: //name// CC: Alonso Fuentes DATE OF SERVICE: 10/27/2017 HISTORY OF PRESENT ILLNESS: This is a 77-year-old male admitted to inpatient rehabilitation to facilitate safe discharge to the home setting, status post left cerebrovascular accident. He is a right hand dominant male. He had some dizziness and slurred speech with multiple falls prior to admission and CT showed no process, but MRI did show acute infarct in the left qamar. He was outside the window for TPA. 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 He has needs in physical and occupational therapy as well as speech and language pathology. He does have his grandson and his spouse at the bedside during this history and physical. He has multiple medical comorbidities requiring acute medical care on a daily basis. No significant changes since the preadmission screening. Previous level of function was independent to modified independent with activities of daily living. Current level of function is moderate to maximum assistance of 1-2 depending on therapy, activity and time of day. He does have a Luke in. He also has vtew-qx-ocaapziy cognitive deficits in comprehension, expression, social interaction, problem solving and memory. His estimated length of stay is 18-21 days with discharge disposition to the home setting where he lives in a house with everything available on one level with 2 steps to enter. PAST MEDICAL HISTORY: Hypertension, diabetes, BPH, hyperlipidemia, anemia, urinary retention. ALLERGIES: No known drug allergies. SOCIAL HISTORY: Former smoker. No alcohol or illicit drug use. PAST SURGICAL HISTORY: Colonoscopy and TURP procedure. 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 REVIEW OF SYSTEMS: Fourteen-point review of systems is done today, is negative except as mentioned in HPI, specifically no fever, chest pain, shortness of breath, abdominal pain or distention, change in bowel or change in bladder. Skin is warm and dry. PHYSICAL EXAMINATION: GENERAL: Alert and oriented, in no apparent distress. VITAL SIGNS: Reviewed and are stable. HEENT: Head atraumatic, normocephalic. Pupils equal, round, [place] [address] HISTORY AND PHYSICAL Name: INDIGO FELICIANO Room: [address]#: [id number] Admission: 10/27/17 Attend Phys: Kelly Fuentes DO Discharge: 11/19/17 Date of : 44 Report #: [id number] ABDOMEN: Soft, nontender, nondistended. NEUROLOGIC: Cranial nerves 2-12 are grossly intact. No focal neuro deficits, 5/5 strength in bilateral upper and lower left extremity with 3/5 strength in the right upper and lower extremity. No facial droop. SKIN: Warm and dry. No rashes or lesions noted. ASSESSMENT: 1. 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 2. Multiple medical comorbidities including hypertension, diabetes, benign prostatic hypertrophy, hyperlipidemia, anemia and urinary retention. PLAN: 1. Admission to inpatient rehabilitation. 2. PT, OT, speech, language, case management, nursing and HIMS to make evaluations and recommendations. 3. We will team weekly. Plan of care is pending. <ELECTRONICALLY SIGNED> By: Kelly Fuentes DO 11/24/17 1412 1730 1752Kelly Fuentes DO /nt
--- NOTE | 2017-12-22 13:45 | D ---
[facility] [address] [place] [address] DISCHARGE SUMMARY Name: INDIGO FELICIANO Room: [address] [place] .R.#: [id number] Admission: 10/27/17 Attend Phys: Kelly Fuentes DO Discharge: 11/19/17 Date of : 44 Report #: [id number] THIS REPORT FOR: //name// CC: Alonso Fuentes DATE OF SERVICE: 11/19/2017 DISCHARGE DIAGNOSIS: Cerebrovascular accident. Discharge disposition is to home with supervision from his spouse. He progressed well during his therapies, did stay in the , had a greater than 24-hour stay with his supervising over the night. Discharge with home health PT, OT and nursing. FOLLOWUP: 1. Follow up with neurologist in 2-4 weeks. 2. Follow up with his primary care physician within one week. All prescriptions were given for one month's time. Medication were reconciled by myself. Discharged on statin that he was previously on. DISCHARGE PHYSICAL EXAMINATION: GENERAL: Alert, oriented, in no apparent distress. VITAL SIGNS: Reviewed and are stable. HEENT: Head atraumatic, normocephalic. Pupils are equal, round, and reactive. ABDOMEN: Soft, nontender, and nondistended. SKIN: Warm and dry. <ELECTRONICALLY SIGNED> By: Kelly Fuentes DO 12/22/17 1345 1401 1435Kelly Fuentes DO /mario
== END 2017-11-19 13:15 | disposition home health service (06) | DRG 65 ==
LOC: M.REH 17:44
PROVIDERS: Internal Medicine; ADMIT Physical Medicine & Rehabilitation
DX: I63.9 Cerebral infarction, unspecified (principal); G81.94 Hemiplegia, unspecified affecting left nondominant side; R47.81 Slurred speech; R42 Dizziness and giddiness; I10 Essential (primary) hypertension; E11.9 Type 2 diabetes mellitus without complications; E78.5 Hyperlipidemia, unspecified; D64.9 Anemia, unspecified; R47.01 Aphasia; R13.10 Dysphagia, unspecified; R60.0 Localized edema; N40.1 Benign prostatic hyperplasia with lower urinary tract symptoms; R33.8 Other retention of urine; L40.9 Psoriasis, unspecified; Z87.891 Personal history of nicotine dependence; Z79.899 Other long term (current) drug therapy; Z82.49 Family history of ischemic heart disease and other diseases of the circulatory system

== ENCOUNTER 2018-11-10 16:58 | Emergency (ER) | payer BC ==
[~2018-11-10] VITALS: Ht 175.3 cm; Wt 85.7 kg
[~2018-11-10 16:58] MED LIST: CHILDREN'S ASPI81 M1 PO; COZAAR 50 MG TA50 M1 PO; GLYBURIDE 2.52.5 MG PO; LIORESAL 10 MG10 MG PO; METFORMIN HCL500 MG PO; PLAVIX 75 MG TA75 M1 PO; PRAVACHOL40 MG PO; PROSCAR 5MG TABL5 MG PO; VITAMIN D2000 UNIT PO; VITAMINC500 PO
[2018-11-10] MEDS ORDERED: AUGMENTIN 875-1 EACH PO (18:30)
[2018-11-10 18:51] VITALS: BP 142/92
== END 2018-11-10 18:51 | disposition home or self-care (01) ==
LOC: M.ERS 16:58
DX: S10.83XA Contusion of other specified part of neck, initial encounter (principal); S09.8XXA Other specified injuries of head, initial encounter; J32.2 Chronic ethmoidal sinusitis; E11.9 Type 2 diabetes mellitus without complications; I10 Essential (primary) hypertension; Z86.73 Personal history of transient ischemic attack (TIA), and cerebral infarction without residual deficits; W01.0XXA Fall on same level from slipping, tripping and stumbling without subsequent striking against object, initial encounter; Y93.89 Activity, other specified; Y92.89 Other specified places as the place of occurrence of the external cause; Y99.8 Other external cause status

== ENCOUNTER 2019-08-15 03:01 | Emergency (ER) | payer BC ==
[~2019-08-15] VITALS: Ht 175.3 cm; Wt 86.2 kg
[~2019-08-15 03:01] MED LIST changes: +AUGMENTIN 875-1 EACH PO
[2019-08-15 03:37] LABS: ABSOLUTE BASOPHILS 0.1 thou/uL (0.0-0.2); ABSOLUTE EOSINOPHILS 0.4 thou/uL (0.0-0.7); ABSOLUTE LYMPHOCYTES 1.5 thou/uL (0.8-5.3); ABSOLUTE MONOCYTES 0.6 thou/uL (0.0-1.2); ABSOLUTE NEUTROPHILS 3.3 thou/uL (1.6-8.1); BASOPHILS 0.9 %; EOSINOPHILS 7.1 %; HEMATOCRIT 44.6 % (42.0-52.0); HEMOGLOBIN 15.4 gm/dL (14.0-18.0); LYMPHOCYTES 26.1 %; MCH 32.1 pg (26.0-34.0); MCHC 34.5 g/dL (28.0-37.0); MCV 93.1 fL (80.0-100.0); MONOCYTES 10.1 %; MPV 8.7 fl. (7.2-11.1); NUCLEATED RBCS 0 /100WBC; PLATELET COUNT* 201 thou/uL (150-400); POLYS 55.8 %; RBC 4.79 mil/uL (4.50-6.00); RDW-CV 13.9 % (10.5-14.5); WBC 5.8 thou/uL (4.0-11.0)
[2019-08-15 03:46] LABS: PROTIME 10.1 Seconds (9.20-11.50)
[2019-08-15 03:56] LABS: CALCIUM 9.2 mg/dL (8.5-10.1); CREATININE 1.2 mg/dL (0.6-1.3); POTASSIUM 4.1 mmol/L (3.5-5.1)
[2019-08-15 04:09] LABS: ALBUMIN 4.1 g/dL (3.4-5.0); TOTAL BILIRUBIN 0.6 mg/dL (<0.1-1.0); TOTAL PROTEIN 7.1 g/dL (6.4-8.2)
[2019-08-15 05:46] VITALS: BP 165/87
--- NOTE | 2019-08-15 13:35 | EKG ---
[place] [address] ELECTROCARDIOGRAM REPORT Name: BRADENINDIGO Jose Carlos Room: [facility]#: [id number] Admission: 08/15/19 Attend Phys: Discharge: 08/15/19 Date of : 44 Report #: [id number] THIS REPORT FOR: //name// [facility] ED Test Date: 2019-08-15 Test Time: 03:14:50 Pat Name: INDIGO FELICIANO Department: Room: Gender: Telephoto Engineer: [place] : 1940 Requested By: Stephanie Bryant Order Number: [id number] MD: Tyler Zaldivar Measurements Intervals [place] Rate: 74 P: 43 ID: 185 QRS: 11 QRSD: 101 T: 30 QT: 384 QTc: 426 Interpretive Statements Sinus rhythm Borderline low voltage, extremity leads Baseline wander in lead(s) I,aVL No previous ECG available for comparison Electronically Signed On 08-15-2019 13:35:18 CDT by Tyler Zaldivar [email or web address] <ELECTRONICALLY SIGNED> By: Tyler Zaldivar MD, [facility] 08/15/19 1335 Tyler Zaldivar MD, FACC /EPI
== END 2019-08-15 06:13 | disposition home or self-care (01) ==
LOC: M.ERS 03:01
PROVIDERS: Emergency Medicine
DX: I16.0 Hypertensive urgency (principal); E11.9 Type 2 diabetes mellitus without complications; I10 Essential (primary) hypertension; L40.9 Psoriasis, unspecified; Z86.73 Personal history of transient ischemic attack (TIA), and cerebral infarction without residual deficits

== ENCOUNTER 2020-10-19 09:04 | Observation (INO) | payer BC ==
[~2020-10-19] VITALS: Ht 172.7 cm; Wt 85.3 kg
--- NOTE | ~2020-10-19 | CON ---
[facility] [address] [place] [address] CONSULTATION Name: INDIGO FELICIANO Room: [address] MedinaRYayo#: [id number] Admission: 10/19/20 Attend Phys: Mary Enriquez Discharge: Date of : 44 Report #: [id number] THIS REPORT FOR: cc: FAM - No family physician/PCP FAM - No family physician/PCP ~ Davie Ross MD DATE OF SERVICE: 10/20/2020 HISTORY OF PRESENT ILLNESS: This is a 80-year-old male patient, who was evaluated by me for unusual symptoms. I talked to Dr. Velez and she has indicated that he had some balance issues. When I talked to the patient, he said he did not have much balance issues. He just did not feel right. History and physical examination also indicate the same thing that he had some balance issue, but to me, he said he just did not feel right. In any event, he believes his symptoms have resolved. He thinks his blood sugar was off that time. He is a known diabetic for some time and he takes metformin and he does not take any insulin or any hypoglycemia causing medications the way I understand from him. He does not know what his blood sugar was during this episode. REVIEW OF SYSTEMS: Indicate that he had a stroke in the past. He was in [facility] at that time. He follows up with his neurologist there. He had a rehab here and those records are available and I reviewed those records. The patient is on antiplatelet therapy. He did not receive any TPA the last time he had a stroke because of outside the window. A 14-point review of systems is also positive for psoriasis and hyperlipidemia. As I understand from him, he is on medication for that. Rest of the 14-point review of system was carried out and was noncontributory. PAST MEDICAL HISTORY: Positive for stroke and those records were reviewed. FAMILY HISTORY: Unremarkable. SOCIAL HISTORY: He does not drink any alcohol. PHYSICAL EXAMINATION: Indicate he is alert, responsive, able to follow simple and complex command. He does not have any speech difficulty. His fund of knowledge and memory looks unremarkable. Cranial nerve examination 2-12 looks unremarkable. He has symmetrical strength the best I can tell, but he is weak. He walks with a cane. He is able to walk. His position sense is intact. Reflexes are diminished, but he is a diabetic. His tone looks symmetrical. He does not appear to have any problem with nhqifm-kb-eokb. I could not look at the fundus. He has no meningeal sign. There is no carotid bruit. His last blood pressure is only 103/62, respirations 19, pulse is 70, temperature is 98.3. His pulses are difficult to feel. He is a well-developed individual, [place] [address] CONSULTATION Name: INDIGO FELICIANO Room: [address] Aniyah Trevino#: [id number] Admission: 10/19/20 Attend Phys: Mary Enriquez Discharge: Date of : 44 Report #: [id number] does not appear to have problem with the hearing. His vision looks adequate. His cardiac examinations appear unremarkable. No respiratory difficulty is present. He did have an MRI of the brain, which does not demonstrate any abnormality. He has a head CTA and that does not appear to be showing any definite abnormality. IMPRESSION: It is unlikely that there is any neurological etiology for the patient's symptoms. He feels back to his normal self. He is not complaining of any new symptoms and I am not sure what the etiology was. He does have some hypotension and if he does become hypotensive, that will aggravate his symptoms and that may have to be addressed. He does not complain of any pain in the neck. We will see how he does with the physical therapy and decide about further evaluation and management in this patient. Thank you very much for this referral. By: 0859 0930Davie Ross MD /mario
[2020-10-19 09:10] VITALS: BP 155/75
[2020-10-19] MEDS ORDERED: TALTZ AUTO80 MG/1 M1 SUBQ (09:30)
[2020-10-19 09:58] LABS: ABSOLUTE EOSINOPHILS 0.4 thou/uL (0.0-0.7); ABSOLUTE LYMPHOCYTES 0.9 thou/uL (0.8-5.3); ABSOLUTE MONOCYTES 0.6 thou/uL (0.0-1.2); ABSOLUTE NEUTROPHILS 3.3 thou/uL (1.6-8.1); BASOPHILS 0.9 %; EOSINOPHILS 7.8 %; LYMPHOCYTES 17.7 %; MCH 31.4 pg (26.0-34.0); MCHC 34.1 g/dL (28.0-37.0); MCV 92.1 fL (80.0-100.0); MONOCYTES 12.2 %; MPV 8.3 fl. (7.2-11.1); NUCLEATED RBCS 0 /100WBC; PLATELET COUNT* 202 thou/uL (150-400); POLYS 61.4 %; RBC 4.46 mil/uL (4.50-6.00); WBC 5.3 thou/uL (4.0-11.0)
[2020-10-19 10:02] LABS: CALCIUM 8.9 mg/dL (8.5-10.1); CREATININE 1.3 mg/dL (0.6-1.3)
[2020-10-19 10:06] LABS: APTT 25.6 Seconds (25.0-31.3); PROTIME 10.6 Seconds (9.20-11.50)
[2020-10-19 10:07] LABS: ALBUMIN 3.7 g/dL (3.4-5.0); TOTAL BILIRUBIN 0.7 mg/dL (<0.1-1.0); TOTAL PROTEIN 7.2 g/dL (6.4-8.2)
[2020-10-19 12:43] LABS: URINE BILIRUBIN NEGATIVE (Negative); URINE BLOOD NEGATIVE (Negative); URINE CLARITY CLEAR; URINE COLOR YELLOW; URINE GLUCOSE-RANDOM NEGATIVE (Negative); URINE KETONES NEGATIVE (Negative); URINE LEUKOCYTES-REFLEX NEGATIVE (Negative); URINE NITRITE-REFLEX NEGATIVE (Negative); URINE PROTEIN NEGATIVE (Negative); URINE UROBILINOGEN 0.2 E.U./dl (0.2-1.0)
[2020-10-19 16:23] VITALS: BP 153/72
[2020-10-19 17:25] VITALS: BP 155/86
[2020-10-19 20:00] VITALS: BP 151/57; BP 161/83
[2020-10-19 20:06] LABS: CALCIUM 9.1 mg/dL (8.5-10.1); CREATININE 1.4 mg/dL (0.6-1.3); POTASSIUM 3.8 mmol/L (3.5-5.1)
[2020-10-19 20:09] LABS: MAGNESIUM 2.2 mg/dL (1.8-2.4); PHOSPHORUS* 4.2 mg/dL (2.5-4.9)
[2020-10-20 04:00] VITALS: BP 103/62
[2020-10-20 05:26] LABS: ALBUMIN 3.4 g/dL (3.4-5.0); ALKALINE PHOSPHATASE 71 U/L (46-116); ANION GAP 9 mmol/L (7-16); BUN 24 mg/dL (7-18); CALCIUM 8.8 mg/dL (8.5-10.1); CHLORIDE 102 mmol/L (98-107); CHOLESTEROL 158 mg/dL (<200); CO2 29 mmol/L (21-32); CREATININE 1.3 mg/dL (0.6-1.3); GLUCOSE 106 mg/dL (70-99); HDL CHOLESTEROL 49 mg/dL (>40); LDL CHOLESTEROL 81 mg/dL (<100); POTASSIUM 3.7 mmol/L (3.5-5.1); SGOT 16 U/L (15-37); SGPT 23 U/L (30-65); SODIUM 140 mmol/L (136-145); TC:HDL 3.2 Ratio (Not establshd); TOTAL BILIRUBIN 0.6 mg/dL (<0.1-1.0); TOTAL PROTEIN 6.5 g/dL (6.4-8.2); TRIGLYCERIDE 140 mg/dL (<150); VLDL 28 mg/dL (<40)
[2020-10-20 05:36] LABS: SERUM ASSESSMENT Clear
[2020-10-20 08:00] VITALS: BP 107/62
--- NOTE | 2020-10-20 10:16 | EKG ---
[place] [address] ELECTROCARDIOGRAM REPORT Name: INDIGO FELICIANO Room: [address]#: [id number] Admission: 10/19/20 Attend Phys: Sheldon Conley Discharge: Date of : 44 Date of Service: 10/19/20 0941 Report #: [id number] THIS REPORT FOR: //name// [facility] ED Test Date: 2020-10-19 Test Time: 09:41:26 Pat Name: INDIGO FELICIANO Department: Room: [facility] Gender: M Education Professor: SARAH : 1940 Requested By: Debbie Velez Order Number: [id number] MD: Donnie Rodríguez Measurements Intervals [place] Rate: 70 P: 45 SD: 197 QRS: 13 QRSD: 99 T: 35 QT: 390 QTc: 421 Interpretive Statements Sinus rhythm Compared to ECG 08/15/2019 03:14:50 No significant changes Electronically Signed On 10-20-2020 10:16:37 HOOP PUNCHER by Donnie Rodríguez [email or web address] <ELECTRONICALLY SIGNED> By: Donnie Rodríguez MD, FACC 10/20/20 1016 0941 0941 Donnie Rodríguez MD, FAC /EPI
[2020-10-20 12:03] VITALS: BP 107/62
[2020-10-21 08:56] LABS: GLYCOHEMOGLOBIN (HGB A1C) 6.9 % (4.8-5.6)
== END 2020-10-20 12:45 | disposition home health service (06) ==
LOC: M.ERS 09:04 → M.TBA-ER 13:40 → M.2W 16:24
PROVIDERS: Personal Emergency Response Attendant; ADMIT Internal Medicine; ATTEND Internal Medicine
DX: G45.9 Transient cerebral ischemic attack, unspecified (principal); E11.65 Type 2 diabetes mellitus with hyperglycemia; I10 Essential (primary) hypertension; Z85.46 Personal history of malignant neoplasm of prostate; Z86.73 Personal history of transient ischemic attack (TIA), and cerebral infarction without residual deficits; Z79.82 Long term (current) use of aspirin; Z79.899 Other long term (current) drug therapy; Z87.891 Personal history of nicotine dependence; Z20.828 Contact with and (suspected) exposure to other viral communicable diseases

== ENCOUNTER 2020-12-27 20:24 | Observation (INO) | payer BC ==
[~2020-12-27] VITALS: Ht 172.7 cm; Wt 167.8 kg
[~2020-12-27 20:24] MED LIST changes: +TALTZ AUTO80 MG/1 M1 SUBQ
[2020-12-27 20:31] VITALS: BP 171/79
[2020-12-27 20:57] LABS: ABSOLUTE BASOPHILS 0.1 thou/uL (0.0-0.2); ABSOLUTE EOSINOPHILS 0.4 thou/uL (0.0-0.7); ABSOLUTE LYMPHOCYTES 1.2 thou/uL (0.8-5.3); ABSOLUTE MONOCYTES 0.7 thou/uL (0.0-1.2); ABSOLUTE NEUTROPHILS 3.6 thou/uL (1.6-8.1); EOSINOPHILS 6.1 %; HEMATOCRIT 41.6 % (42.0-52.0); HEMOGLOBIN 14.2 gm/dL (14.0-18.0); LYMPHOCYTES 20.8 %; MCH 31.3 pg (26.0-34.0); MCHC 34.1 g/dL (28.0-37.0); MONOCYTES 11.2 %; MPV 8.3 fl. (7.2-11.1); NUCLEATED RBCS 0 /100WBC; PLATELET COUNT* 220 thou/uL (150-400); POLYS 60.9 %; RBC 4.52 mil/uL (4.50-6.00); WBC 5.9 thou/uL (4.0-11.0)
[2020-12-27 21:05] LABS: CALCIUM 9.5 mg/dL (8.5-10.1); CREATININE 1.4 mg/dL (0.6-1.3); POTASSIUM 4.1 mmol/L (3.5-5.1); PROTIME 10.3 Seconds (9.20-11.50)
[2020-12-27 21:17] LABS: ALBUMIN 3.7 g/dL (3.4-5.0); TOTAL BILIRUBIN 0.5 mg/dL (<0.1-1.0); TOTAL PROTEIN 7.2 g/dL (6.4-8.2)
[2020-12-28] VITALS (8 sets, daily range): BP systolic 127–176; BP diastolic 67–87
[2020-12-28 10:43] LABS: CALCIUM 9.1 mg/dL (8.5-10.1); CREATININE 1.3 mg/dL (0.6-1.3); TOTAL BILIRUBIN 0.5 mg/dL (<0.1-1.0); TOTAL PROTEIN 7.7 g/dL (6.4-8.2)
--- NOTE | 2020-12-28 14:11 | EKG ---
[place] [address] ELECTROCARDIOGRAM REPORT Name: FELICIANOINDIGO Room: [address] M.R.#: [id number] Admission: 12/27/20 Attend Phys: Molly Bella, Discharge: Date of : 44 Date of Service: 12/27/202039 Report #: [id number] THIS REPORT FOR: //name// [facility] ED Test Date: 2020-12-27 Test Time: 20:40:25 Pat Name: INDIGO FELICIANO Department: Room: [facility] Gender: M Instructor Military Science: [place] : 1940 Requested By: Stephanie Bryant Order Number: [id number] MD: Tyler Zaldivar Measurements Intervals [place] Rate: 82 P: 80 [place]: 194 QRS: 9 QRSD: 97 T: 30 QT: 363 QTc: 424 Interpretive Statements Sinus rhythm Inferior infarct, old Compared to ECG 10/19/2020 09:41:26 Myocardial infarct finding now present Electronically Signed On 12-28-2020 14:11:15 ARMATURE INSPECTOR by Tyler Zaldivar [email or web address] <ELECTRONICALLY SIGNED> By: Tyler Zaldivar MD, FACC 12/28/20 1411 39 39 Tyler Zaldivar MD, [facility] /EPI
--- NOTE | 2020-12-30 12:53 | EKG ---
[place] [address] ELECTROCARDIOGRAM REPORT Name: INDIGO FELICIANO Room: [address] M.R.#: [id number] Admission: 12/27/20 Attend Phys: Molly Bella, Discharge: 12/28/20 Date of : 44 Date of Service: 12/28/20 1234 Report #: [id number] THIS REPORT FOR: //name// [facility] Test Date: 2020-12-28 Test Time: 12:34:15 Pat Name: INDIGO FELICIANO Department: Room: [address] Gender: M Electrostatic Paint Operator: FERNANDO : 1940 Requested By: Molly Bella Order Number: [id number] MD: Donnie Rodríguez Measurements Intervals [place] Rate: 78 P: 61 [place]: 193 QRS: 1 QRSD: 101 T: 30 QT: 364 QTc: 415 Interpretive Statements Sinus rhythm Inferior infarct, old Baseline wander in lead(s) V1 Compared to ECG 12/27/2020 20:40:25 No significant changes Electronically Signed On 12-30-2020 12:53:15 MORGUE LIBRARIAN by Donnie Rodríguez [email or web address] <ELECTRONICALLY SIGNED> By: Donnie Rodríguez MD, FACC 12/30/20 1253 1234 1234 Donnie Rodríguez MD, FAC /EPI
== END 2020-12-28 19:08 | disposition home or self-care (01) ==
LOC: M.ERS 20:24 → M.TBA-ER 22:58 → M.2W 12-28 00:11
PROVIDERS: Emergency Medicine; Internal Medicine; ADMIT Internal Medicine; ATTEND Internal Medicine
DX: H53.8 Other visual disturbances (principal); R25.0 Abnormal head movements; I10 Essential (primary) hypertension; E11.9 Type 2 diabetes mellitus without complications; Z86.73 Personal history of transient ischemic attack (TIA), and cerebral infarction without residual deficits; Z85.46 Personal history of malignant neoplasm of prostate; Z87.891 Personal history of nicotine dependence; Z79.82 Long term (current) use of aspirin; Z79.899 Other long term (current) drug therapy; Z20.822 Contact with and (suspected) exposure to COVID-19

== ENCOUNTER → 2021-01-27 | Outpatient (CLI) | payer BC | LOC: M.MRI 07:15 | PROVIDERS: ATTEND Psychiatry & Neurology Neuromuscular Medicine | DX: I63.532 Cerebral infarction due to unspecified occlusion or stenosis of left posterior cerebral artery (principal); R42 Dizziness and giddiness; R53.83 Other fatigue; J01.10 Acute frontal sinusitis, unspecified ==